=== PATIENT | male | born 1995 | race Caucasian/White ===

== ENCOUNTER 2020-10-25 12:03 | Emergency (ER) | payer OTHER ==
[~2020-10-25] VITALS: Ht 175.3 cm; Wt 75.0 kg
[2020-10-25 12:04] VITALS: TEMP 98.1
[2020-10-25] MEDS ORDERED: CEPHALEXIN500 M1 PO (12:25)
[2020-10-25 12:50] VITALS: BP 128/76; PULSE 85
== END 2020-10-25 12:50 | disposition home or self-care (01) ==
LOC: COL.ER 12:03
DX: S51.811A Laceration without foreign body of right forearm, initial encounter (principal); W26.0XXA Contact with knife, initial encounter